=== PATIENT | female | born 1950 | race Two or more races ===

== ENCOUNTER 2020-10-05 04:46 | Inpatient (IN) | payer OTHER ==
[~2020-10-05] VITALS: Ht 162.6 cm; Wt 72.6 kg
[2020-10-05] MEDS ORDERED: ONDANSETRON HCL 4MG/2ML INJ IV STA (05:13)
[2020-10-05] MEDS ORDERED: NITROGLYCERIN OINT 1GM/INCH UDPKT TD ONE (05:15)
[2020-10-05 05:46] LABS: BASOPHILS % 0.5 % (0.0-2.0); EOSINOPHILS % 0.3 % (0.0-5.0); HEMATOCRIT. 22.2 % (36.0-48.0); HEMOGLOBIN. 7.3 g/dL (12.0-16.0); LYMPHOCYTES % 15.4 % (20.0-50.0); MEAN CORPUSCULAR HEMOGLOBIN 34.3 pg (28.0-32.0); MEAN CORPUSCULAR VOLUME 104.4 fL (81.0-99.0); MEAN PLATELET VOLUME 7.6 fl (7.4-10.4); MONOCYTES % 8.6 % (2.0-8.0); NEUTROPHILS % 75.2 % (40.0-76.0); PLATELET 407 x1000/uL (130-400); RED BLOOD CELL COUNT 2.13 mill/uL (4.2-5.4)
[2020-10-05 05:49] LABS: BG BASE EXCESS -1.3 mmol/L (-2.0-2.0); BG CARBOXYHEMOGLOBIN 0.6 % (0.5-1.5); BG DEOXYHEMOGLOBIN 1.3 % (0.0-5.0); BG FRACTION INSPIRED OXYGEN 50; BG HCO3 ACT 22.7 mmol/L (22.0-26.0); BG METHEMOGLOBIN 0.3 % (0.0-1.5); BG OXYGEN SATURATION 98.7 % (92.0-98.5); BG OXYHEMOGLOBIN 97.8 % (94.0-97.0); BG PCO2 34.3 mmHg (35.0-45.0); BG PH 7.438 (7.350-7.450); BG PO2 135.8 mmHg (75.0-100.0); BG SAMPLE SITE LEFT RADIAL; BG TOTAL HEMOGLOBIN 7.9 g/dL (12.0-18.0)
[2020-10-05 05:52] LABS: CHLORIDE 103 mEq/L (98-107)
[2020-10-05] MEDS ORDERED: ONDANSETRON HCL 4MG/2ML INJ IV PRN (07:30)
[2020-10-05] MEDS ORDERED: NOREPINEPHRINE 8 MG in DEXT 5% WATER 242 ML IV PRN (07:30)
[2020-10-05] MEDS ORDERED: DEXTROSE 50% WATER 50ML SYRINGE IV PRN (07:30)
[2020-10-05] MEDS ORDERED: DIPHENHYDRAMINE 50MG/ML VIAL IV PRN (07:30)
[2020-10-05] MEDS ORDERED: ACETAMINOPHEN 325MG TABLET PO PRN ×2 (07:30)
[2020-10-05] MEDS ORDERED: TRAMADOL 50MG TABLET PO PRN (07:30)
[2020-10-05] MEDS ORDERED: NITROGLYCERIN 0.4MG TABLET SL SL PRN (07:30)
[2020-10-05] MEDS ORDERED: ENOXAPARIN 40MG/0.4ML SYR SUBCUT SCH ×2 (07:30→17:15)
[2020-10-05] MEDS ORDERED: DOCUSATE SODIUM 100MG CAPSULE PO PRN (07:30)
[2020-10-05] MEDS ORDERED: ALBUTEROL 6.7GM HFA INHALER ORI PRN (07:30)
[2020-10-05] MEDS ORDERED: CLONIDINE 0.1MG TABLET PO PRN (07:30)
[2020-10-05] MEDS ORDERED: GUAIFENESIN 200MG/10ML SUGAR FREE UDC PO PRN (07:30)
[2020-10-05] MEDS ORDERED: MAGNESIUM/ALUMINUM HYDROXIDE/SIMETHICONE 30ML UDC PO PRN (07:30)
[2020-10-05] MEDS: BLOOD SUGAR DIAGNOSTIC STRIP TEST SCH ×4 (09:00→21:00)
[2020-10-05] MEDS ORDERED: ALBUTEROL 6.7GM HFA INHALER ORI SCH (09:00)
[2020-10-05] MEDS ORDERED: ENOXAPARIN 30MG/0.3ML SYR SUBCUT SCH (09:00)
[2020-10-05] MEDS ORDERED: FUROSEMIDE 100MG/10ML VIAL IVP SCH (09:00)
[2020-10-05] MEDS: SEVELAMER CARBONATE 800 MG TABLET PO SCH ×3 (09:25→18:11)
[2020-10-05] MEDS: CHOLECALCIFEROL (D3) 1000 UNIT TABLET PO SCH (09:26)
[2020-10-05] MEDS: AZITHROMYCIN 500 MG in DEXT 5% WATER 250 ML IV SCH (09:27)
[2020-10-05] MEDS: CEFTRIAXONE 1 G PREMIX 50 ML IV SCH (09:34)
[2020-10-05] MEDS: FAMOTIDINE 20MG TABLET PO SCH (09:34)
[2020-10-05] MEDS: ASPIRIN 81MG EC TABLET PO SCH (09:35)
[2020-10-05] MEDS: ASCORBIC ACID 500 MG TABLET PO SCH ×2 (09:35→21:00)
[2020-10-05] MEDS: METOPROLOL TARTRATE 25MG TABLET PO SCH ×2 (09:36→21:00)
[2020-10-05] MEDS: AMLODIPINE 10MG TABLET PO SCH (09:39)
[2020-10-05] MEDS: ZINC SULFATE 220 MG ( 50 ) CAPSULE PO SCH (09:39)
[2020-10-05 10:12] LABS: INR 1.1; PROTHROMBIN TIME 11.3 sec (9.6-11.0)
[2020-10-05 10:32] LABS: D-DIMER 16.91 mg/L FEU (<0.50)
[2020-10-05 11:23] LABS: FOLIC ACID (FOLATE) SERUM 19.2 ng/mL (>5.38)
[2020-10-05] MEDS: INSULIN LISPRO 100 UNITS/ML SUBCUT SCH ×4 (12:21→21:00)
[2020-10-05 14:42] LABS: CREATINE KINASE MB FRACTION 4.2 ng/mL (0.5-3.6)
[2020-10-05] MEDS: HYDRALAZINE HCL 50MG TABLET PO SCH ×2 (15:06→22:00)
[2020-10-05] MEDS: DEXAMETHASONE 10 MG/ML VIAL IV SCH (15:07)
[2020-10-05 18:32] LABS: HEMATOCRIT 22.2 % (36.0-48.0); HEMOGLOBIN 7.4 g/dL (12.0-16.0)
[2020-10-05] MEDS: EPOETIN ALFA-EPBX 10,000 UNIT/ML VIAL SUBCUT SCH (21:00)
[2020-10-05] MEDS: INSULIN GLARGINE UD 100 UNITS/ML SYR SUBCUT SCH (22:00)
[2020-10-06 00:23] LABS: CREATINE KINASE MB FRACTION 2.7 ng/mL (0.5-3.6)
[2020-10-06 00:32] LABS: HEMATOCRIT 25.9 % (36.0-48.0); HEMOGLOBIN 8.6 g/dL (12.0-16.0)
[2020-10-06 06:00] LABS: BASOPHILS % 0.3 % (0.0-2.0); HEMATOCRIT. 24.7 % (36.0-48.0); HEMOGLOBIN. 8.4 g/dL (12.0-16.0); MEAN CORPUSCULAR HEMOGLOBIN 33.8 pg (28.0-32.0); MEAN CORPUSCULAR VOLUME 99.4 fL (81.0-99.0); MEAN PLATELET VOLUME 7.4 fl (7.4-10.4); MONOCYTES % 7.6 % (2.0-8.0); NEUTROPHILS % 77.1 % (40.0-76.0); PLATELET 307 x1000/uL (130-400); RED BLOOD CELL COUNT 2.48 mill/uL (4.2-5.4); RED CELL DISTRIBUTION WIDTH 21.1 % (11.6-14.6)
[2020-10-06] MEDS: HYDRALAZINE HCL 50MG TABLET PO SCH ×3 (06:00→23:12)
[2020-10-06 06:16] LABS: CHLORIDE 104 mEq/L (98-107)
[2020-10-06 06:24] LABS: PHOSPHORUS 3.8 mg/dL (2.5-4.9)
[2020-10-06] MEDS: BLOOD SUGAR DIAGNOSTIC STRIP TEST SCH ×4 (06:58→21:47)
[2020-10-06] MEDS: INSULIN LISPRO 100 UNITS/ML SUBCUT SCH ×4 (06:59→21:00)
[2020-10-06] MEDS: SEVELAMER CARBONATE 800 MG TABLET PO SCH ×3 (07:00→18:07)
[2020-10-06] MEDS: AMLODIPINE 10MG TABLET PO SCH (09:00)
[2020-10-06] MEDS: ASCORBIC ACID 500 MG TABLET PO SCH ×2 (09:00→22:08)
[2020-10-06] MEDS: ZINC SULFATE 220 MG ( 50 ) CAPSULE PO SCH (09:00)
[2020-10-06] MEDS: METOPROLOL TARTRATE 25MG TABLET PO SCH ×2 (09:00→22:08)
[2020-10-06] MEDS: AZITHROMYCIN 500 MG in DEXT 5% WATER 250 ML IV SCH (09:00)
[2020-10-06] MEDS: DEXAMETHASONE 10 MG/ML VIAL IV SCH (09:00)
[2020-10-06] MEDS: FAMOTIDINE 20MG TABLET PO SCH (09:00)
[2020-10-06] MEDS: CHOLECALCIFEROL (D3) 1000 UNIT TABLET PO SCH (09:00)
[2020-10-06] MEDS: CEFTRIAXONE 1 G PREMIX 50 ML IV SCH (09:00)
[2020-10-06] MEDS: ASPIRIN 81MG EC TABLET PO SCH (09:00)
[2020-10-06 12:34] LABS: HEMATOCRIT 25.9 % (36.0-48.0); HEMOGLOBIN 8.7 g/dL (12.0-16.0)
[2020-10-06] MEDS: CARVEDILOL 6.25 MG TABLET PO SCH ×2 (14:15→22:08)
[2020-10-06] MEDS: ENOXAPARIN 80MG/0.8ML SYR SUBCUT SCH (18:07)
[2020-10-06 18:24] LABS: HEMATOCRIT 26.3 % (36.0-48.0); HEMOGLOBIN 8.8 g/dL (12.0-16.0)
[2020-10-06] MEDS: INSULIN GLARGINE UD 100 UNITS/ML SYR SUBCUT SCH (22:07)
[2020-10-06] MEDS: ZOLPIDEM TARTRATE 5MG TABLET PO PRN (23:12)
[2020-10-07] MEDS ORDERED: IOHEXOL-350 100 ML BOTTLE ONE (03:33)
[2020-10-07 04:34] LABS: BASOPHILS % 0.4 % (0.0-2.0); EOSINOPHILS % 1.5 % (0.0-5.0); HEMATOCRIT. 23.1 % (36.0-48.0); HEMOGLOBIN. 7.7 g/dL (12.0-16.0); LYMPHOCYTES % 19.5 % (20.0-50.0); MEAN CORPUSCULAR HEMOGLOBIN 32.8 pg (28.0-32.0); MEAN CORPUSCULAR VOLUME 98.7 fL (81.0-99.0); MEAN PLATELET VOLUME 7.4 fl (7.4-10.4); MONOCYTES % 9.2 % (2.0-8.0); NEUTROPHILS % 69.4 % (40.0-76.0); PLATELET 329 x1000/uL (130-400); RED BLOOD CELL COUNT 2.34 mill/uL (4.2-5.4); RED CELL DISTRIBUTION WIDTH 20.9 % (11.6-14.6)
[2020-10-07 04:56] LABS: PHOSPHORUS 3.2 mg/dL (2.5-4.9)
[2020-10-07] MEDS: BLOOD SUGAR DIAGNOSTIC STRIP TEST SCH ×4 (06:07→20:54)
[2020-10-07] MEDS: INSULIN LISPRO 100 UNITS/ML SUBCUT SCH ×4 (06:08→21:38)
[2020-10-07] MEDS: HYDRALAZINE HCL 50MG TABLET PO SCH ×3 (06:45→21:41)
[2020-10-07] MEDS: SEVELAMER CARBONATE 800 MG TABLET PO SCH ×3 (07:05→17:45)
[2020-10-07] MEDS: CARVEDILOL 6.25 MG TABLET PO SCH ×2 (09:28→20:53)
[2020-10-07] MEDS: CHOLECALCIFEROL (D3) 1000 UNIT TABLET PO SCH (09:28)
[2020-10-07] MEDS: CEFTRIAXONE 1 G PREMIX 50 ML IV SCH (09:28)
[2020-10-07] MEDS: FAMOTIDINE 20MG TABLET PO SCH (09:28)
[2020-10-07] MEDS: ASPIRIN 81MG EC TABLET PO SCH (09:28)
[2020-10-07] MEDS: ASCORBIC ACID 500 MG TABLET PO SCH ×2 (09:28→20:54)
[2020-10-07] MEDS: DEXAMETHASONE 10 MG/ML VIAL IV SCH (09:28)
[2020-10-07] MEDS: ZINC SULFATE 220 MG ( 50 ) CAPSULE PO SCH (09:28)
[2020-10-07] MEDS: METOPROLOL TARTRATE 25MG TABLET PO SCH ×2 (09:28→20:53)
[2020-10-07] MEDS: AMLODIPINE 10MG TABLET PO SCH (09:28)
[2020-10-07] MEDS: AZITHROMYCIN 500 MG in DEXT 5% WATER 250 ML IV SCH (10:40)
[2020-10-07 12:30] VITALS: BP 134/56
[2020-10-07 13:59] VITALS: BP 142/70
[2020-10-07 16:00] VITALS: BP 132/63
[2020-10-07] MEDS: ENOXAPARIN 80MG/0.8ML SYR SUBCUT SCH (17:46)
[2020-10-07 18:00] VITALS: BP 135/85
[2020-10-07 20:00] VITALS: BP 143/71
[2020-10-07] MEDS: EPOETIN ALFA-EPBX 10,000 UNIT/ML VIAL SUBCUT SCH (20:54)
[2020-10-07] MEDS: INSULIN GLARGINE UD 100 UNITS/ML SYR SUBCUT SCH (21:39)
[2020-10-07 22:00] VITALS: BP 159/80
[2020-10-07] MEDS: ZOLPIDEM TARTRATE 5MG TABLET PO PRN (22:16)
[2020-10-08] VITALS (12 sets, daily range): BP systolic 120–166; BP diastolic 62–75
[2020-10-08] MEDS: HYDRALAZINE HCL 50MG TABLET PO SCH ×3 (05:41→21:03)
[2020-10-08 06:21] LABS: BASOPHILS % 0.1 % (0.0-2.0); HEMATOCRIT. 25.2 % (36.0-48.0); HEMOGLOBIN. 8.5 g/dL (12.0-16.0); LYMPHOCYTES % 19.5 % (20.0-50.0); MEAN CORPUSCULAR HEMOGLOBIN 33.8 pg (28.0-32.0); MEAN PLATELET VOLUME 7.1 fl (7.4-10.4); MONOCYTES % 9.8 % (2.0-8.0); NEUTROPHILS % 70.6 % (40.0-76.0); PLATELET 363 x1000/uL (130-400); RED BLOOD CELL COUNT 2.52 mill/uL (4.2-5.4); RED CELL DISTRIBUTION WIDTH 20.6 % (11.6-14.6)
[2020-10-08] MEDS: BLOOD SUGAR DIAGNOSTIC STRIP TEST SCH ×4 (07:30→21:10)
[2020-10-08] MEDS: INSULIN LISPRO 100 UNITS/ML SUBCUT SCH ×4 (08:00→21:06)
[2020-10-08] MEDS: IPRATROPIUM/ALBUTEROL 0.5-3(2.5)MG/3ML NEB HHN SCH ×2 (08:40→20:53)
[2020-10-08] MEDS ORDERED: HEPARIN SODIUM 1,000 UNIT/1ML VIAL IV SCH (09:00)
[2020-10-08] MEDS: DEXAMETHASONE 10 MG/ML VIAL IV SCH (10:48)
[2020-10-08] MEDS: CHOLECALCIFEROL (D3) 1000 UNIT TABLET PO SCH (10:48)
[2020-10-08] MEDS: ZINC SULFATE 220 MG ( 50 ) CAPSULE PO SCH (10:48)
[2020-10-08] MEDS: CEFTRIAXONE 1,000 MG in DEXTROSE 5% WATER 50 ML IV SCH (10:48)
[2020-10-08] MEDS: FAMOTIDINE 20MG TABLET PO SCH (10:49)
[2020-10-08] MEDS: CARVEDILOL 6.25 MG TABLET PO SCH ×2 (10:49→21:02)
[2020-10-08] MEDS: ASCORBIC ACID 500 MG TABLET PO SCH ×2 (10:49→21:01)
[2020-10-08] MEDS: ASPIRIN 81MG EC TABLET PO SCH (10:49)
[2020-10-08] MEDS: METOPROLOL TARTRATE 25MG TABLET PO SCH ×2 (10:50→21:03)
[2020-10-08] MEDS: AMLODIPINE 10MG TABLET PO SCH (10:50)
[2020-10-08] MEDS: AZITHROMYCIN 500 MG in DEXT 5% WATER 250 ML IV SCH (12:43)
[2020-10-08] MEDS: SEVELAMER CARBONATE 800 MG TABLET PO SCH ×3 (12:43→17:22)
[2020-10-08] MEDS: ENOXAPARIN 80MG/0.8ML SYR SUBCUT SCH (17:22)
[2020-10-08 18:48] LABS: PHOSPHORUS 3.1 mg/dL (2.5-4.9)
[2020-10-08] MEDS: ZOLPIDEM TARTRATE 5MG TABLET PO PRN (21:05)
[2020-10-08] MEDS: INSULIN GLARGINE UD 100 UNITS/ML SYR SUBCUT SCH (23:27)
[2020-10-09] VITALS (9 sets, daily range): BP systolic 132–172; BP diastolic 55–82
[2020-10-09] MEDS: IPRATROPIUM/ALBUTEROL 0.5-3(2.5)MG/3ML NEB HHN SCH ×3 (02:54→15:40)
[2020-10-09] MEDS: HYDRALAZINE HCL 50MG TABLET PO SCH ×2 (06:02→14:14)
[2020-10-09 07:08] LABS: BASOPHILS % 0.2 % (0.0-2.0); HEMATOCRIT. 24.9 % (36.0-48.0); HEMOGLOBIN. 8.4 g/dL (12.0-16.0); LYMPHOCYTES % 21.2 % (20.0-50.0); MEAN CORPUSCULAR HEMOGLOBIN 33.6 pg (28.0-32.0); MEAN CORPUSCULAR VOLUME 99.7 fL (81.0-99.0); MEAN PLATELET VOLUME 7.9 fl (7.4-10.4); MONOCYTES % 11.6 % (2.0-8.0); PLATELET 384 x1000/uL (130-400); RED CELL DISTRIBUTION WIDTH 21.1 % (11.6-14.6)
[2020-10-09] MEDS: BLOOD SUGAR DIAGNOSTIC STRIP TEST SCH ×2 (07:30→12:25)
[2020-10-09 07:52] LABS: PHOSPHORUS 3.8 mg/dL (2.5-4.9)
[2020-10-09] MEDS: SEVELAMER CARBONATE 800 MG TABLET PO SCH ×2 (08:00→13:00)
[2020-10-09] MEDS: CEFTRIAXONE 1,000 MG in DEXTROSE 5% WATER 50 ML IV SCH (08:46)
[2020-10-09] MEDS: ASCORBIC ACID 500 MG TABLET PO SCH (09:09)
[2020-10-09] MEDS: FAMOTIDINE 20MG TABLET PO SCH (09:10)
[2020-10-09] MEDS: AMLODIPINE 10MG TABLET PO SCH (09:10)
[2020-10-09] MEDS: CARVEDILOL 6.25 MG TABLET PO SCH (09:11)
[2020-10-09] MEDS: ZINC SULFATE 220 MG ( 50 ) CAPSULE PO SCH (09:11)
[2020-10-09] MEDS: ASPIRIN 81MG EC TABLET PO SCH (09:11)
[2020-10-09] MEDS: CHOLECALCIFEROL (D3) 1000 UNIT TABLET PO SCH (09:11)
[2020-10-09] MEDS: DEXAMETHASONE 10 MG/ML VIAL IV SCH (09:12)
[2020-10-09] MEDS: METOPROLOL TARTRATE 25MG TABLET PO SCH (09:12)
[2020-10-09] MEDS: INSULIN LISPRO 100 UNITS/ML SUBCUT SCH ×2 (09:13→13:00)
[2020-10-09] MEDS: AZITHROMYCIN 500 MG in DEXT 5% WATER 250 ML IV SCH (09:57)
== END 2020-10-09 16:21 | disposition home health service (06) | DRG 193 ==
LOC: ER 04:46 → MICUSO 06:04 → EDBEDREQTM 06:20 → EDBEDREQ 06:20 → EDBEDREQTM 20:47 → EDBEDREQSVC 20:47 → 5EST 10-07 10:30
PROVIDERS: ADMIT Internal Medicine; ATTEND Internal Medicine
PROC: 5A09457 Assistance with Respiratory Ventilation, 24-96 Consecutive Hours, Continuous Positive Airway Pressure (ICD-10-PCS; principal; 2020-10-05)
PROC: 5A1D70Z Performance of Urinary Filtration, Intermittent, Less than 6 Hours Per Day (ICD-10-PCS; 2020-10-05)
PROC: 30233N1 Transfusion of Nonautologous Red Blood Cells into Peripheral Vein, Percutaneous Approach (ICD-10-PCS; 2020-10-05)
PROC: 5A1D70Z Performance of Urinary Filtration, Intermittent, Less than 6 Hours Per Day (ICD-10-PCS; 2020-10-06)
PROC: 5A1D70Z Performance of Urinary Filtration, Intermittent, Less than 6 Hours Per Day (ICD-10-PCS; 2020-10-07)
PROC: 5A1D70Z Performance of Urinary Filtration, Intermittent, Less than 6 Hours Per Day (ICD-10-PCS; 2020-10-09)
DX: J18.9 Pneumonia, unspecified organism (principal); J96.01 Acute respiratory failure with hypoxia; I21.A1 Myocardial infarction type 2; N18.6 End stage renal disease; E43 Unspecified severe protein-calorie malnutrition; I50.43 Acute on chronic combined systolic (congestive) and diastolic (congestive) heart failure; K65.9 Peritonitis, unspecified; I13.2 Hypertensive heart and chronic kidney disease with heart failure and with stage 5 chronic kidney disease, or end stage renal disease; E11.22 Type 2 diabetes mellitus with diabetic chronic kidney disease; D63.8 Anemia in other chronic diseases classified elsewhere; E11.65 Type 2 diabetes mellitus with hyperglycemia; I16.0 Hypertensive urgency; I27.20 Pulmonary hypertension, unspecified; Z20.822 Contact with and (suspected) exposure to COVID-19; Z99.2 Dependence on renal dialysis; Z79.4 Long term (current) use of insulin; Z68.27 Body mass index [BMI] 27.0-27.9, adult; I25.2 Old myocardial infarction; Z82.49 Family history of ischemic heart disease and other diseases of the circulatory system; Z79.899 Other long term (current) drug therapy
CPT/HCPCS: 36415; 36600; 71045; 71275; 76770; 80048; 80053; 80061; 82375; 82550; 82553; 82607; 82728; 82746; 82805; 82962; 83036; 83540; 83550; 83615; 83735; 83880; 84100; 84145; 84484; 85014; 85018; 85025; 85379; 86850; 86900; 86920; 87635; 93005; 93306; 93970; 93976; 94640; 94660; 96365; 99291; J0456; J0696; J0885; J1100; J1200; J1644; J1650; J1815; J1940; J2405; J7060; P9016; Q9967